=== PATIENT | female | born 1975 | race Caucasian/White ===

== ENCOUNTER → 2020-09-06 | Outpatient (CLI) | payer MEDICARE, OTHER ==
[~2020-09-06] MED LIST: BACTRIM DS TAB1 EACH PO; BACTROBAN OINT22 GM EXT; BACTROBAN OINT22 GM TOP; IBUPROFEN600 MG PO; KEFLEX CAP 500500 MG PO; SITZ BATH
== END ==
LOC: RAD 16:55
DX: L40.50 Arthropathic psoriasis, unspecified (principal)
CPT/HCPCS: 73630

== ENCOUNTER 2021-02-24 14:14 | Emergency (ER) | payer MEDICARE, OTHER ==
[2021-02-24] MEDS ORDERED: OMNICEF 300 MG300 MG PO (17:44)
[2021-02-24] MEDS ORDERED: PYRIDIUM200 MG PO (17:54)
== END 2021-02-24 17:55 | disposition home or self-care (01) ==
LOC: ER1 14:14
DX: N39.0 Urinary tract infection, site not specified (principal); E11.9 Type 2 diabetes mellitus without complications; I10 Essential (primary) hypertension; E78.5 Hyperlipidemia, unspecified; F17.200 Nicotine dependence, unspecified, uncomplicated
CPT/HCPCS: 81001; 87086; 99283

== ENCOUNTER → 2021-12-19 | Outpatient (CLI) | payer MEDICARE, OTHER ==
[~2021-12-19] MED LIST changes: +OMNICEF 300 MG300 MG PO; +PYRIDIUM200 MG PO
== END ==
LOC: KOH-I 14:56
DX: M79.674 Pain in right toe(s) (principal); S92.411A Displaced fracture of proximal phalanx of right great toe, initial encounter for closed fracture
CPT/HCPCS: 73660